=== PATIENT | male | born 1940 | race Caucasian/White ===

== ENCOUNTER 2019-12-05 21:48 | Emergency (ER) | payer OTHER ==
[~2019-12-05] VITALS: Ht 177.8 cm; Wt 78.0 kg
[2019-12-05 23:21] LABS: BASOPHILS ABSOLUTE AUTO 0.02 K/mm3 (0.00-0.23); BASOPHILS PERCENT AUTO 1 % (0-2); EOSINOPHILS PERCENT AUTO 0 % (0-6); Hematocrit 35.9 % (37.0-53.0); Hemoglobin 11.9 g/dL (13.5-17.5); IMMATURE GRAN ABSOLUTE AUTO 0.08 K/mm3 (0.00-0.10); IMMATURE GRAN PERCENT AUTO 3 % (0-1); LYMPHOCYTES ABSOLUTE AUTO 0.41 K/mm3 (0.84-5.20); LYMPHOCYTES PERCENT AUTO 14 % (21-46); MONOCYTES ABSOLUTE AUTO 0.51 K/mm3 (0.16-1.47); MONOCYTES PERCENT AUTO 17 % (4-13); Mean Corpuscular HGB 29.5 pg (26.0-34.0); Mean Corpuscular HGB Conc 33.1 g/dL (31.5-36.5); Mean Corpuscular Volume 89 fL (80-100); Mean Platelet Volume 9.3 fL (9.1-12.4); NEUTROPHILS ABSOLUTE AUTO 1.94 K/mm3 (1.96-9.15); NEUTROPHILS PERCENT AUTO 66 % (41-73); Platelet Count 372 K/mm3 (150-400); RDW Coefficient Variation 15.6 % (11.7-14.2); Red Blood Cell Count 4.04 M/mm3 (4.30-5.90); White Blood Cell Count 2.96 K/mm3 (4.00-11.30)
[2019-12-05 23:41] LABS: Alanine Aminotransfer (ALT/SGP 29 U/L (12-78); Albumin/Globulin Ratio 0.9 (0.8-1.8); Alk Phos 71 U/L (50-136); Anion Gap 9 mmol/L (6-16); Aspartate Aminotrans (AST/SGOT 34 U/L (12-37); Bilirubin, Total 0.4 mg/dL (0.1-1.0); Blood Urea Nitrogen 6 mg/dL (8-24); Bun/Creatinine Ratio 6.7 (12.0-20.0); CO2, Blood 26 mmol/L (21-32); Calcium, Blood 8.6 mg/dL (8.5-10.1); Chloride, Blood 102 mmol/L (98-108); Globulin, Blood 3.5 g/dL (2.2-4.0); Glomerular Filtration Rate >60 (60-); Glucose, Blood 121 mg/dL (70-99); Potassium, Blood 3.4 mmol/L (3.5-5.5); Sodium, Blood 137 mmol/L (136-145); Total Protein, Blood 6.5 g/dL (6.4-8.2)
[2019-12-06] MEDS ORDERED: GABA300 PO (00:35)
[2019-12-06] MEDS ORDERED: PROC5 PO (00:36)
[2019-12-06] MEDS ORDERED: PRED5 PO (00:36)
[2019-12-06] MEDS ORDERED: POTA10T PO (00:37)
[2019-12-06] MEDS ORDERED: ATOR80 PO (00:37)
[2019-12-06] MEDS ORDERED: Megestrol Aceta20 MG PO (00:37)
[2019-12-06] MEDS ORDERED: DOCU100 PO (00:38)
[2019-12-06] MEDS ORDERED: OMEP20ER PO (00:38)
[2019-12-06] MEDS ORDERED: AMLO5 PO (00:38)
[2019-12-06] MEDS ORDERED: HYDROCHLOROTH12.5 MG PO (00:39)
[2019-12-06] MEDS ORDERED: [UNRECOGNIZED DRUG - OTHER] IV (00:41)
[2019-12-06] MEDS ORDERED: [UNRECOGNIZED DRUG - CODE] IV (00:41)
[2019-12-06 03:34] LABS: Source, Urine Clean Catch
[2019-12-06 03:36] LABS: Bilirubin, Urine Neg (Neg); Blood, Urine Neg (Neg); Glucose Qualitative, Urine Neg (Neg); Ketones, Urine Neg (Neg); Leukocyte Esterase, Urine Neg (Neg); Nitrite, Urine Neg (Neg); Protein, Urine Neg (Neg); Specific Gravity, Urine 1.005 (1.003-1.022); Urobilinogen, Urine NORM (Normal)
[2019-12-06 03:37] LABS: Appearance, Urine Clear (Clear); Color, Urine Yellow (P-Yellow)
== END 2019-12-06 04:38 | disposition home or self-care (01) ==
LOC: ER 21:48
PROVIDERS: Physician Assistant
DX: R62.7 Adult failure to thrive (principal); C79.51 Secondary malignant neoplasm of bone; I10 Essential (primary) hypertension; I25.2 Old myocardial infarction; Z85.46 Personal history of malignant neoplasm of prostate; Z79.52 Long term (current) use of systemic steroids; Z79.899 Other long term (current) drug therapy; Z87.891 Personal history of nicotine dependence
CPT/HCPCS: 51701; 80053; 81003; 83690; 85025; 93005; 93010